=== PATIENT | female | born 2000 | race Caucasian/White ===

== ENCOUNTER 2021-11-11 12:27 | Outpatient (CLI) | payer OTHER ==
[2021-11-11] VITALS (17 sets, daily range): BP systolic 111–154; BP diastolic 60–94
== END 2021-11-11 23:59 | disposition home or self-care (01) ==
LOC: CARD DIAG 12:27
PROVIDERS: ATTEND Internal Medicine Cardiovascular Disease
DX: R55 Syncope and collapse (principal); G90.1 Familial dysautonomia [Riley-Day]
CPT/HCPCS: 93660